=== PATIENT | male | born 1960 | race Caucasian/White ===

== ENCOUNTER → 2016-10-08 | Outpatient (CLI) | payer OTHER ==
--- NOTE | 2016-10-08 10:56 | DI ---
Indication: ITS.REASON: H53.8 BLURRY VISION PROCEDURE: MRI BRAIN W/O CONTRAST: Encounter: Initial Comparisons: None. Technique: Multiplanar, multisequence, MR imaging of the head without contrast was acquired. FINDINGS: The ventricles are of normal size, shape, and contour for the patient's age. There are multiple periventricular T2/FLAIR hyperintense lesions in the frontal and parietal lobes. These are greater than expected for the patient's age. The brain stem, cerebellum, and cerebral hemispheres otherwise have a normal morphologic appearance as well as MR signal intensity on all pulse sequences. There are no areas of restricted diffusion on diffusion weighted imaging to suggest an acute infarct. There is no evidence of an intracranial mass lesion, intracranial hemorrhage, or hydrocephalus. The visualized portions of the orbits, calvarium, paranasal sinuses, and skull base demonstrate no significant abnormality. IMPRESSION: Greater than expected periventricular predominant white matter disease is nonspecific and statistically most likely to represent advanced chronic microvascular ischemia. Demyelinating disease is within the differential. .
== END ==
LOC: IMA 09:53
PROVIDERS: ATTEND Family Medicine
DX: H53.8 Other visual disturbances (principal); R90.82 White matter disease, unspecified

== ENCOUNTER → 2016-11-12 | Outpatient (CLI) | payer OTHER ==
[~2016-11-12] MED LIST: GADOBUTROL 10mMol/10ml INJECTION IV ONE; SALINE FLUSH 10ml SYRINGE ONE
--- NOTE | 2016-11-13 08:32 | DI ---
Indication: ITS.REASON: H46.9 UNSPECIFIED OPTIC NEURITIS, R93.0 ABNORMAL FINDINGS ON DIAG PROCEDURE: MRI BRAIN W/ CONTRAST: Encounter: Initial Comparison: Brain MRI dated October 08, 2016 Technique: Multiplanar multisequence MR imaging of the brain was performed after the administration of contrast. Contrast: 10 mL Gadavist Findings: Multifocal white matter disease is again noted in the periventricular regions as seen on the comparison study compatible with the provided history of multiple sclerosis. The distribution of lesions is grossly similar between the two exams. Postcontrast imaging shows no evidence of enhancing lesion to suggest demyelination. No enhancing masses identified. The ventricles are stable. No gross acute intracranial hemorrhage. Impression: No enhancing mass or active demyelinating lesion seen. .
--- NOTE | 2016-11-13 08:36 | DI ---
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 Contrast: 10 mL Gadavist Findings: Alignment of the cervical spine is abnormal with loss of the normal lordosis. There is slight retrolisthesis of C3 on C4 and C6 on C7. The cervical and upper thoracic spinal cord signal intensity appears normal. No evidence of spinal cord enhancement to suggest an active demyelinating lesion. No acute fracture. Degenerative endplate edema at C6-C7 and C3-C4. Paraspinal soft tissues show no acute findings. Segmental analysis: C2-C3: Degenerative facet and uncovertebral changes right greater than left causing severe right and mild left neural foraminal stenosis. No significant central canal stenosis. C3-C4: Central disk osteophyte complex effacing the thecal sac with mild central canal stenosis. Severe bilateral neural foraminal stenosis with degenerative uncovertebral and facet changes. C4-C5: Degenerative facet and uncovertebral changes, greater on the left with severe bilateral neural foraminal stenosis. No significant central canal narrowing. C5-C6: Disk osteophyte complex with degenerative facet changes and small central disk bulge causing mild central canal stenosis. Severe bilateral neural foraminal stenosis. C6-C7: Central disk protrusion slightly effacing the thecal sac with mild central canal narrowing. Degenerative uncovertebral and facet changes causing severe lateral neural foraminal stenosis. C7-T1: Normal Impression: 1. No evidence of active demyelinating lesion. 2. Multifocal severe neural foraminal stenosis with probable nerve root impingement. .
== END ==
LOC: IMA 16:34
PROVIDERS: ATTEND Electrodiagnostic Medicine
DX: H46.9 Unspecified optic neuritis (principal); R93.0 Abnormal findings on diagnostic imaging of skull and head, not elsewhere classified; M48.02 Spinal stenosis, cervical region
CPT/HCPCS: 70552; 72156; A9585